=== PATIENT | female | born 1990 | race Caucasian/White ===

== ENCOUNTER → 2016-05-27 | Outpatient (REF) | payer OTHER | LOC: M LAB REF 12:25 | PROVIDERS: ATTEND Physician Assistant | DX: R30.0 Dysuria (principal); M54.5 Low back pain ==

== ENCOUNTER → 2016-06-07 | Outpatient (CLI) | payer OTHER ==
--- NOTE | 2016-06-07 16:44 | REP ---
Lumbar spine five views: Vertebral body heights, interspacing alignment are normal. There is no spondylolysis or spondylolisthesis. The pedicles, facets and sacroiliac articulations are unremarkable. Impression: Negative lumbar spine. Signed by Antonio Dyer MD 06/07/2016 04:35 P
== END ==
LOC: M WUC 11:25
PROVIDERS: ATTEND Physician Assistant
DX: M54.32 Sciatica, left side (principal)

== ENCOUNTER → 2016-07-04 | Outpatient (REF) | payer OTHER | LOC: M LAB REF 19:07 | PROVIDERS: ATTEND Physician Assistant | DX: J02.9 Acute pharyngitis, unspecified (principal) ==

== ENCOUNTER → 2016-09-27 | Outpatient (REF) | payer OTHER | LOC: M LAB REF 16:59 | PROVIDERS: ATTEND Obstetrics & Gynecology | DX: Z12.4 Encounter for screening for malignant neoplasm of cervix (principal); Z11.3 Encounter for screening for infections with a predominantly sexual mode of transmission ==

== ENCOUNTER → 2016-10-14 | Outpatient (REF) | payer OTHER | LOC: M LAB REF 14:37 | PROVIDERS: ATTEND Physician Assistant | DX: J02.9 Acute pharyngitis, unspecified (principal) ==

== ENCOUNTER → 2016-12-17 | Outpatient (CLI) | payer OTHER ==
[~2016-12-17] MED LIST: CITA20TA4 PO; IBUP80TA PO; LEVO25TA5 PO; MEDR15VL IM; RANI1TAB38 PO
[2016-12-17 17:56] LABS: BASO # 0.1 K/mm3 (0.0-0.2); BASO % 0.6 % (0.0-1.0); EOS # 0.1 K/mm3 (0.0-0.50); EOS % 0.7 % (0.0-3.0); LARGE UNSTAINED CELL # 0.1 K/mm3 (0.0-0.4); LARGE UNSTAINED CELL % 1.1 % (0.0-4.0); LYMPH # 2.3 K/mm3 (1.5-6.5); LYMPH % 23.9 % (24.0-44.0); MEAN CORPUSCULAR HEMOGLOBIN 28.2 pg (27.0-33.0); MEAN CORPUSCULAR HGB CONC 32.6 g/dl (32.0-36.5); MEAN CORPUSCULAR VOLUME 86.6 fl (80.0-96.0); MONO # 0.5 K/mm3 (0.0-0.8); MONO % 4.9 % (0.0-5.0); NEUTROPHILS # 6.4 K/mm3 (1.8-7.7); NEUTROPHILS % 68.8 % (36.0-66.0); PLATELET COUNT, AUTOMATED 270 k/mm3 (150-450); RED CELL DISTRIBUTION WIDTH 12.7 % (11.5-14.5); WHITE BLOOD COUNT 9.3 K/mm3 (4.0-10.0)
[2016-12-17 18:11] LABS: ALBUMIN 3.6 GM/DL (3.2-5.2); ALBUMIN/GLOBULIN RATIO 1.06 (1.00-1.93); ALKALINE PHOSPHATASE 119 U/L (45-117); ALT/SGPT 19 U/L (12-78); ANION GAP 9 MEQ/L (8-16); AST/SGOT 10 U/L (15-37); BILIRUBIN,TOTAL 0.5 MG/DL (0.2-1.0); BLOOD UREA NITROGEN 14 MG/DL (7-18); CALCIUM LEVEL 7.8 MG/DL (8.5-10.1); CARBON DIOXIDE LEVEL 24 MEQ/L (21-32); CHLORIDE LEVEL 111 MEQ/L (98-107); CREATININE FOR GFR 0.78 MG/DL (0.55-1.02); GLOMERULAR FILTRATION RATE > 60.0 (>60); GLUCOSE, FASTING 80 MG/DL (70-105); POTASSIUM SERUM 4.4 MEQ/L (3.5-5.1); SODIUM LEVEL 144 MEQ/L (136-145)
== END ==
LOC: M WUC 12:10
PROVIDERS: ATTEND Nurse Practitioner Family
DX: E03.9 Hypothyroidism, unspecified (principal)

== ENCOUNTER → 2017-01-06 | Day surgery (SDC) | payer OTHER ==
[~2017-01-06] VITALS: Ht 167.6 cm; Wt 133.4 kg
[~2017-01-06] MED LIST changes: +BUPIVACAINE/EPIN 0.25% 30 ML VIAL As Ordered ONE; +KETOROLAC 30 MG/ML VIAL (J1885) IV SCH; +LIDOCAINE 2% INJ 100 MG/5 ML SDV (FOR ANES.) As Ordered ONE; +LR 1,000 ML IV SCH; +MIDAZOLAM INJ 2 MG/2 ML VIAL (J2250) As Ordered ONE; +NORCO, ANEXSIA 5/325MG TABLET (HYDROcodone/ACETAMINOPHEN) PO PRN; +ONDANSETRON 4MG/2ML VIAL (J2405) IV PRN; +PERCOCET 5MG/325MG TAB PO PRN; +PROPOFOL 200 MG/20 ML VIAL As Ordered ONE; +ROCURONIUM BROMIDE 50 MG/5 ML VIAL/SYRINGE As Ordered ONE; +ceFAZolin SOD 1 GM in D5W MINI-BAG PLUS 50 ML IV ONE; +dexameTHASONE 4 MG/ML 1ML VIAL (J1100) As Ordered ONE; +fentaNYL 100 MCG/2 ML INJECTION (J3010) As Ordered ONE; +fentaNYL 100 MCG/2 ML INJECTION (J3010) IV PRN
[2017-01-06 12:02] LABS: CONTROL LINE UCG INT CTR LINE PRESENT
[2017-01-06 15:30] VITALS: BP 134/60
--- NOTE | 2017-01-24 08:51 | RO ---
DATE OF PROCEDURE: 01/06/2017 PREOPERATIVE DIAGNOSIS: Symptomatic gallstones. POSTOPERATIVE DIAGNOSIS: Symptomatic gallstones. PROCEDURE: Laparoscopic cholecystectomy. SURGEON: Karlo Gomez MD ANESTHESIA: General endotracheal anesthesia. ESTIMATED BLOOD LOSS: Minimal. FLUIDS: Crystalloid. PROCEDURE SUMMARY: The patient was brought to the operating room and was given general anesthesia. After adequate anesthesia and preoperative antibiotics were given, the patient was prepped and draped in the usual sterile fashion. Next, a periumbilical incision was made with a skin knife. Blunt dissection was carried down to fascia. Fascia was grasped Bryce clamps, elevated, and a Veress needle placed into the abdominal cavity, insufflated to 15 mm pressure. A dilating 10 mm trocar was placed at this time and under direct visualization an epigastric and two lateral trocars were placed. The gallbladder was seen, grasped and retracted superiorly. The gallbladder was cleared of surrounding omentum with hook cautery down to the level of the neck of the gallbladder. This was cleared of surrounding tissue using the hook cautery on the peritoneum laterally and then anteriorly. Once a good plane behind the neck of the gallbladder was created, further dissection anteriorly was created with the use some minimal blunt dissection, as was well as the hook cautery on the loose areolar tissue in the peritoneum. The cystic artery was well visualized at this time and then a window behind the neck of the gallbladder was created on the medial side as well. Then further dissection up to the cystic plate was performed laterally and then once a good window behind the neck of the gallbladder was created, a critical view of safety was obtained. The cystic artery, cystic duct was well visualized. Loose areolar tissue surrounding the cystic duct was cleared and the cystic artery was clipped proximally, distally and transected. This allowed the cystic duct to be mobilized even better at this point and then was clipped proximally, distally and transected. The gallbladder was removed from the gallbladder bed using electrocautery, placed in an EndoCatch bag and brought out through the umbilicus. The right upper quadrant was copiously irrigated until clear. The umbilicus was closed with #0 Vicryl and all incisions were closed with #4-0 Vicryl. Steri-Strips and dry sterile dressing was applied. The patient was awakened from his anesthesia, extubated and brought to the recovery room awake, alert, hemodynamically stable. Sponge and needle counts correct times two.
== END ==
LOC: M SDC 11:02
PROVIDERS: ATTEND Surgery
DX: K80.10 Calculus of gallbladder with chronic cholecystitis without obstruction (principal); K21.9 Gastro-esophageal reflux disease without esophagitis; F41.9 Anxiety disorder, unspecified; F32.9 Major depressive disorder, single episode, unspecified; E03.9 Hypothyroidism, unspecified; Z88.5 Allergy status to narcotic agent; Z88.1 Allergy status to other antibiotic agents; Z91.041 Radiographic dye allergy status; Z79.899 Other long term (current) drug therapy; Z87.891 Personal history of nicotine dependence

== ENCOUNTER 2017-05-22 06:53 | Day surgery (SDC) | payer OTHER ==
[2017-05-22] MEDS ORDERED: ceFAZolin 2 GM/D5W 50 ML IV BAG (J0690 PER 500MG) As Ordered (07:05)
[2017-05-22 07:38] LABS: CONTROL LINE UCG INT CTR LINE PRESENT; HEMATOCRIT 42.9 % (36.0-47.0); HEMOGLOBIN 13.7 g/dl (12.0-16.0); MEAN CORPUSCULAR HEMOGLOBIN 27.3 pg (27.0-33.0); MEAN CORPUSCULAR HGB CONC 31.9 g/dl (32.0-36.5); MEAN CORPUSCULAR VOLUME 85.5 fl (80.0-96.0); PLATELET COUNT, AUTOMATED 356 10^3/uL (150-450); RED BLOOD COUNT 5.02 10^6/uL (4.00-5.40); RED CELL DISTRIBUTION WIDTH 13.1 % (11.5-14.5); URINE PREG TEST NEGATIVE (NEGATIVE); WHITE BLOOD COUNT 13.3 10^3/uL (4.0-10.0)
[2017-05-22] MEDS: LR 1,000 ML IV ×3 (07:40→11:45)
[2017-05-22] MEDS ORDERED: KETOROLAC 60 MG/2 ML VIAL (J1885) As Ordered (08:58)
[2017-05-22] MEDS ORDERED: ONDANSETRON 4MG/2ML VIAL (J2405) As Ordered (08:58)
[2017-05-22] MEDS ORDERED: PROPOFOL 200 MG/20 ML VIAL As Ordered (08:58)
[2017-05-22] MEDS ORDERED: dexameTHASONE 4 MG/ML 1ML VIAL (J1100) As Ordered (08:58)
[2017-05-22] MEDS ORDERED: LIDOCAINE 2% INJ 100 MG/5 ML SDV (FOR ANES.) As Ordered (08:58)
[2017-05-22] MEDS ORDERED: ROCURONIUM BROMIDE 50 MG/5 ML VIAL As Ordered ×2 (08:58→09:12)
[2017-05-22] MEDS ORDERED: fentaNYL 100 MCG/2 ML INJECTION (J3010) As Ordered ×2 (08:59→11:08)
[2017-05-22] MEDS ORDERED: MIDAZOLAM INJ 2 MG/2 ML VIAL (J2250) As Ordered (08:59)
[2017-05-22] MEDS ORDERED: HYDROmorphone HCL 2 MG/ML 1ML VIAL (J1170) As Ordered (08:59)
[2017-05-22] MEDS: BUPIVACAINE HCL 0.25% 10 ML VIAL As Ordered (09:08)
[2017-05-22] MEDS: METHYLENE BLUE 0.5% (5MG/ML) 10 ML AMP (PROVAYBLUE)(Q9968 PER 1MG) As Ordered (10:23)
[2017-05-22] MEDS ORDERED: NEOSTIGMINE 10 MG/10 ML VIAL (J2710) As Ordered (10:36)
[2017-05-22] MEDS: fentaNYL 100 MCG/2 ML INJECTION (J3010) IV ×2 (11:15→11:27)
[2017-05-22] MEDS ORDERED: ONDANSETRON 4MG/2ML VIAL (J2405) IV ×2 (11:45→23:45)
[2017-05-22] MEDS ORDERED: MEPERIDINE 50 MG/ML 1ML VIAL (J2175) IV (11:45)
[2017-05-22] MEDS ORDERED: HYDROmorphone HCL 1 MG/ML SYRINGE (J1170) IV (11:45)
[2017-05-22] MEDS ORDERED: PERCOCET 5MG/325MG TAB PO ×5 (11:45→23:45)
[2017-05-22] MEDS: DOCUSATE SODIUM 100 MG CAP PO ×2 (13:25→20:13)
[2017-05-22] MEDS ORDERED: KETOROLAC 30 MG/ML VIAL (J1885) IV (17:00)
[2017-05-23] MEDS: DOCUSATE SODIUM 100 MG CAP PO (08:45)
[2017-05-23] MEDS: IBUPROFEN 800 MG TAB PO (08:45)
== END 2017-05-23 09:17 | disposition home or self-care (01) ==
LOC: M SDC 06:53 → M MSPAV 13:13
DX: N94.6 Dysmenorrhea, unspecified (principal); R10.2 Pelvic and perineal pain; N72 Inflammatory disease of cervix uteri; F41.9 Anxiety disorder, unspecified; F32.9 Major depressive disorder, single episode, unspecified; E03.9 Hypothyroidism, unspecified; K21.9 Gastro-esophageal reflux disease without esophagitis; Z88.5 Allergy status to narcotic agent; Z88.8 Allergy status to other drugs, medicaments and biological substances; Z91.041 Radiographic dye allergy status; Z72.0 Tobacco use; Z79.3 Long term (current) use of hormonal contraceptives
CPT/HCPCS: 58570

== ENCOUNTER → 2017-08-14 | Outpatient (REF) | payer OTHER | LOC: M LAB REF 08:55 | DX: J02.9 Acute pharyngitis, unspecified (principal) | CPT/HCPCS: 87081 ==

== ENCOUNTER 2017-10-12 11:24 | Emergency (ER) | payer OTHER ==
[2017-10-12] MEDS: dexameTHASONE 4 MG/ML 1ML VIAL (J1100) PO (12:28)
== END 2017-10-12 12:41 | disposition home or self-care (01) ==
LOC: M ED 11:24
DX: J02.9 Acute pharyngitis, unspecified (principal); Z88.5 Allergy status to narcotic agent; Z88.8 Allergy status to other drugs, medicaments and biological substances; Z91.018 Allergy to other foods; Z91.041 Radiographic dye allergy status; F17.210 Nicotine dependence, cigarettes, uncomplicated
CPT/HCPCS: J1100

== ENCOUNTER 2017-11-17 08:08 | Emergency (ER) | payer OTHER ==
[2017-11-17 08:44] LABS: AMORPHOUS SEDIMENT RFX SMALL (NEGATIVE); KETONE, URINE AUTO RFX NEGATIVE (NEGATIVE); LEUKOCYTE ESTERASE UR AUTO RFX NEGATIVE (NEGATIVE); MUCUS, URINE RFX MODERATE (NEGATIVE); NITRITE, URINE AUTO RFX NEGATIVE (NEGATIVE); RBC, URINE AUTO RFX 0 /HPF (0-3); SPECIFIC GRAVITY UR AUTO RFX 1.026 (1.002-1.035); SQUAM EPITHELIAL CELL UR AURFX 11 /HPF (0-6); WBC, URINE AUTO RFX 2 /HPF (0-3)
== END 2017-11-17 09:09 | disposition home or self-care (01) ==
LOC: M ED 08:08
DX: N30.90 Cystitis, unspecified without hematuria (principal); K21.9 Gastro-esophageal reflux disease without esophagitis; E03.9 Hypothyroidism, unspecified; N80.9 Endometriosis, unspecified; Z87.440 Personal history of urinary (tract) infections; Z88.5 Allergy status to narcotic agent; Z88.8 Allergy status to other drugs, medicaments and biological substances; Z91.041 Radiographic dye allergy status; Z91.048 Other nonmedicinal substance allergy status; F17.210 Nicotine dependence, cigarettes, uncomplicated
CPT/HCPCS: 81001

== ENCOUNTER → 2017-11-17 | Outpatient (REF) | payer OTHER ==
[2017-11-17 16:38] LABS: CHLAMYDIA DNA AMPLIFICATION NEGATIVE (NEGATIVE); GC DNA AMPLIFICATION NEGATIVE (NEGATIVE)
== END ==
LOC: M LAB REF 14:08
DX: N39.0 Urinary tract infection, site not specified (principal)
CPT/HCPCS: 87086

== ENCOUNTER 2018-02-07 19:13 | Emergency (ER) | payer OTHER ==
[2018-02-07 20:50] LABS: BASO # 0.1 10^3/uL (0.0-0.2); BASO % 0.4 % (0.0-1.0); EOS # 0.1 10^3/uL (0.0-0.50); EOS % 0.8 % (0.0-3.0); HEMATOCRIT 46.8 % (36.0-47.0); HEMOGLOBIN 14.7 g/dl (12.0-15.5); IMMATURE GRANULOCYTE % 0.6 % (0-3.0); LYMPH # 3.5 10^3/uL (1.5-6.5); LYMPH % 22.4 % (24.0-44.0); MEAN CORPUSCULAR HEMOGLOBIN 28.5 pg (27.0-33.0); MEAN CORPUSCULAR HGB CONC 31.4 g/dl (32.0-36.5); MEAN CORPUSCULAR VOLUME 90.7 fl (80.0-96.0); MONO # 0.9 10^3/uL (0.0-0.8); MONO % 5.5 % (0.0-5.0); NEUTROPHILS # 11.1 10^3/uL (1.8-7.7); NEUTROPHILS % 70.3 % (36.0-66.0); PLATELET COUNT, AUTOMATED 338 10^3/uL (150-450); RED BLOOD COUNT 5.16 10^6/uL (4.00-5.40); RED CELL DISTRIBUTION WIDTH 12.5 % (11.5-14.5); WHITE BLOOD COUNT 15.8 10^3/uL (4.0-10.0)
[2018-02-07 20:54] LABS: KETONE, URINE AUTO RFX TRACE mg/dL (NEGATIVE); LEUKOCYTE ESTERASE UR AUTO RFX NEGATIVE (NEGATIVE); MUCUS, URINE RFX SMALL (NEGATIVE); NITRITE, URINE AUTO RFX NEGATIVE (NEGATIVE); RBC, URINE AUTO RFX 3 /HPF (0-3); SQUAM EPITHELIAL CELL UR AURFX 2 /HPF (0-6); WBC, URINE AUTO RFX 1 /HPF (0-3)
[2018-02-07] MEDS: NS 1,000 ML IV (21:25)
[2018-02-07] MEDS: KETOROLAC 30 MG/ML VIAL (J1885) IV (21:25)
[2018-02-07] MEDS: ONDANSETRON 4MG/2ML VIAL (J2405) IV (21:25)
[2018-02-07 21:29] LABS: ANION GAP 5 MEQ/L (8-16); BLOOD UREA NITROGEN 16 MG/DL (7-18); CALCIUM LEVEL 8.6 MG/DL (8.5-10.1); CARBON DIOXIDE LEVEL 28 MEQ/L (21-32); CHLORIDE LEVEL 107 MEQ/L (98-107); CREATININE FOR GFR 0.84 MG/DL (0.55-1.30); GLOMERULAR FILTRATION RATE > 60.0 (>60); GLUCOSE, FASTING 85 MG/DL (70-100); POTASSIUM SERUM 3.9 MEQ/L (3.5-5.1); SODIUM LEVEL 140 MEQ/L (136-145)
[2018-02-07] MEDS: cefTRIAXone SOD 1 GM in D5W MINI-BAG PLUS 50 ML IV (23:30)
[2018-02-07] MEDS: METOCLOPRAMIDE INJ 10MG/2ML VIAL (J2765) IV (23:48)
== END 2018-02-08 01:17 | disposition home or self-care (01) ==
LOC: M ED 02-08 01:17
DX: N83.201 Unspecified ovarian cyst, right side (principal); N83.202 Unspecified ovarian cyst, left side; N39.0 Urinary tract infection, site not specified; K21.9 Gastro-esophageal reflux disease without esophagitis; N80.9 Endometriosis, unspecified; Z91.018 Allergy to other foods; E03.9 Hypothyroidism, unspecified; Z88.5 Allergy status to narcotic agent; Z88.8 Allergy status to other drugs, medicaments and biological substances; Z91.040 Latex allergy status
CPT/HCPCS: J2405

== ENCOUNTER 2018-02-10 19:11 | Emergency (ER) | payer OTHER ==
[2018-02-10 19:58] LABS: KETONE, URINE AUTO RFX NEGATIVE (NEGATIVE); LEUKOCYTE ESTERASE UR AUTO RFX 2+ (NEGATIVE); MUCUS, URINE RFX SMALL (NEGATIVE); NITRITE, URINE AUTO RFX NEGATIVE (NEGATIVE); RBC, URINE AUTO RFX 7 /HPF (0-3); SPECIFIC GRAVITY UR AUTO RFX 1.016 (1.002-1.035); SQUAM EPITHELIAL CELL UR AURFX 3 /HPF (0-6); WBC, URINE AUTO RFX 2 /HPF (0-3); YEAST LIKE CELL URINE AUTO RFX SMALL
[2018-02-10] MEDS: DOCUSATE SODIUM 100 MG CAP PO (20:37)
[2018-02-10] MEDS: PERCOCET 5MG/325MG TAB PO ×2 (20:41→22:51)
[2018-02-10 21:54] LABS: CHLAMYDIA DNA AMPLIFICATION NEGATIVE (NEGATIVE); GC DNA AMPLIFICATION NEGATIVE (NEGATIVE)
== END 2018-02-10 22:54 | disposition home or self-care (01) ==
LOC: M ED 19:11
DX: N83.209 Unspecified ovarian cyst, unspecified side (principal)
CPT/HCPCS: 81001

== ENCOUNTER 2018-06-15 20:59 | Emergency (ER) | payer OTHER ==
[~2018-06-15] VITALS: Ht 167.6 cm; Wt 129.1 kg
[~2018-06-15 20:59] MED LIST changes: +BACT800T5 PO; -BUPIVACAINE/EPIN 0.25% 30 ML VIAL As Ordered ONE; +CIPR-249 PO; +COLA100C5 PO; +IBUP-1022 PO; -KETOROLAC 30 MG/ML VIAL (J1885) IV SCH; -LIDOCAINE 2% INJ 100 MG/5 ML SDV (FOR ANES.) As Ordered ONE; -LR 1,000 ML IV SCH; +MAGICMW MT; +MEDR150I10; +MEDR150I10 IM; -MEDR15VL IM; -MIDAZOLAM INJ 2 MG/2 ML VIAL (J2250) As Ordered ONE; +NASA1SPR; -NORCO, ANEXSIA 5/325MG TABLET (HYDROcodone/ACETAMINOPHEN) PO PRN; -ONDANSETRON 4MG/2ML VIAL (J2405) IV PRN; +PERC5TAB12 PO; -PERCOCET 5MG/325MG TAB PO PRN; -PROPOFOL 200 MG/20 ML VIAL As Ordered ONE; +RANI150T PO; -ROCURONIUM BROMIDE 50 MG/5 ML VIAL/SYRINGE As Ordered ONE; +SUDATAB18 PO; +ZOFR4TAB14 PO; -ceFAZolin SOD 1 GM in D5W MINI-BAG PLUS 50 ML IV ONE; -dexameTHASONE 4 MG/ML 1ML VIAL (J1100) As Ordered ONE; -fentaNYL 100 MCG/2 ML INJECTION (J3010) As Ordered ONE; -fentaNYL 100 MCG/2 ML INJECTION (J3010) IV PRN
[2018-06-15] MEDS ORDERED: NS 1,000 ML IV ONE (21:15)
[2018-06-15 21:35] LABS: HEMATOCRIT 45.5 % (36.0-47.0); HEMOGLOBIN 14.5 g/dl (12.0-15.5); MEAN CORPUSCULAR HEMOGLOBIN 28.6 pg (27.0-33.0); MEAN CORPUSCULAR HGB CONC 31.9 g/dl (32.0-36.5); MEAN CORPUSCULAR VOLUME 89.7 fl (80.0-96.0); PLATELET COUNT, AUTOMATED 341 10^3/uL (150-450); RED BLOOD COUNT 5.07 10^6/uL (4.00-5.40); WHITE BLOOD COUNT 14.7 10^3/uL (4.0-10.0)
[2018-06-15 21:54] LABS: ALBUMIN 3.6 GM/DL (3.2-5.2); ALT/SGPT 24 U/L (12-78); ATYPICAL LYMPH 6 % (0-5); BILIRUBIN,TOTAL 0.2 MG/DL (0.2-1.0); BLOOD UREA NITROGEN 13 MG/DL (7-18); CARBON DIOXIDE LEVEL 28 MEQ/L (21-32); CHLORIDE LEVEL 105 MEQ/L (98-107); CREATININE FOR GFR 0.72 MG/DL (0.55-1.30); GLOMERULAR FILTRATION RATE > 60.0 (>60); GLUCOSE, FASTING 90 MG/DL (70-100); LIPASE 180 U/L (73-393); LYMPHOCYTES 29 % (16-52); MONOCYTES 2 % (0-8); NEUTROPHILS 63 % (35-75); PLATELET ESTIMATE NORMAL (NORMAL); POTASSIUM SERUM 4.2 MEQ/L (3.5-5.1); SODIUM LEVEL 140 MEQ/L (136-145); TOTAL PROTEIN 6.8 GM/DL (6.4-8.2); TOXIC VACUOLATION 1+
--- NOTE | 2018-06-15 22:52 | REPVR ---
EXAM: US Pelvis Complete, Transabdominal EXAM DATE/TIME: 06/15/2018 10:16 PM CLINICAL HISTORY: 27 years old, female; Pain; Pelvic pain; Prior surgery; Surgery date: 6+ months; Surgery type: Partial hysterectomy; Additional info: R pelvic pain, HX cysts and fam HX ovarian CA TECHNIQUE: Real-time transabdominal pelvic ultrasound with image documentation. Complete exam. COMPARISON: US PELVIC NON-OB COMPLETE 02/08/2018 12:07 AM FINDINGS: Uterus/cervix: The patient has had previous removal of the uterus. Right adnexa: The right ovary measures 4.3 CM by 4.2 CM. There is a 4 CM cystic structure within the right ovary. There is vascular flow of the margin of this consistent with vascular flow of the ovarian tissue surrounding this very large dominant cyst. Followup studies would be important to see if this dominant cystic structure resolves to exclude any possibility of cystadenoma or cystadenocarcinoma. Left adnexa: The left ovary measures 4 CM in length by 3 CM in thickness. There is vascular flow the left ovary with no evidence of torsion. There is an irregular cyst left ovary and may be a collapsing cyst measuring 2 CM by 1 CM. Free fluid: There is a moderate amount of fluid within the pelvis. Within this fluid there are low-level echoes and this may represent blood. Bladder: Normal appearing urinary bladder. IMPRESSION: 1. 4 cm large cyst of the right ovary. To exclude any possibility of cystadenoma or cystadenocarcinoma recommend sequential followup studies to see if this resolves. 2. Collapsing cyst of the left ovary. 3. Moderate amount of free fluid in the pelvis with low-level echoes possibly blood and blood products. Correlation with CT should be considered. Electronically signed by: Thierry Fernandez On 06/15/2018 22:52:03 PM
[2018-06-15 23:22] VITALS: BP 131/78
--- NOTE | 2018-06-25 18:49 | ED PDOC ---
Post-Departure Follow-Up juana barker faxed formal report of pelvic us for fu Traci Chandra MD Jun 25, 2018 18:49
== END 2018-06-15 23:46 | disposition home or self-care (01) ==
LOC: M ED 20:59
DX: N83.201 Unspecified ovarian cyst, right side (principal); N83.292 Other ovarian cyst, left side

== ENCOUNTER 2018-08-15 17:55 | Emergency (ER) | payer OTHER ==
[~2018-08-15] VITALS: Ht 165.1 cm; Wt 135.4 kg
[~2018-08-15 17:55] MED LIST changes: -CITA20TA4 PO; +CITA20TA6 PO
[2018-08-15] MEDS ORDERED: KETOROLAC 30 MG/ML VIAL (J1885) IV ONE (18:45)
[2018-08-15 18:47] LABS: BASO # 0.1 10^3/uL (0.0-0.2); BASO % 0.5 % (0.0-1.0); EOS # 0.1 10^3/uL (0.0-0.50); EOS % 0.7 % (0.0-3.0); HEMATOCRIT 44.7 % (36.0-47.0); HEMOGLOBIN 14.4 g/dl (12.0-15.5); LYMPH # 3.4 10^3/uL (1.5-6.5); LYMPH % 28.5 % (24.0-44.0); MEAN CORPUSCULAR HEMOGLOBIN 29.1 pg (27.0-33.0); MEAN CORPUSCULAR HGB CONC 32.2 g/dl (32.0-36.5); MEAN CORPUSCULAR VOLUME 90.5 fl (80.0-96.0); MONO # 0.7 10^3/uL (0.0-0.8); MONO % 6.3 % (0.0-5.0); NEUTROPHILS # 7.5 10^3/uL (1.8-7.7); NEUTROPHILS % 63.6 % (36.0-66.0); PLATELET COUNT, AUTOMATED 296 10^3/uL (150-450); RED BLOOD COUNT 4.94 10^6/uL (4.00-5.40); WHITE BLOOD COUNT 11.8 10^3/uL (4.0-10.0)
[2018-08-15 19:12] LABS: ALBUMIN 3.7 GM/DL (3.2-5.2); ALT/SGPT 25 U/L (12-78); AMYLASE 55 U/L (25-115); BILIRUBIN,DIRECT < 0.1 MG/DL (0.0-0.2); BILIRUBIN,TOTAL 0.3 MG/DL (0.2-1.0); BLOOD UREA NITROGEN 16 MG/DL (7-18); CALCIUM LEVEL 8.7 MG/DL (8.5-10.1); CARBON DIOXIDE LEVEL 27 MEQ/L (21-32); CHLORIDE LEVEL 107 MEQ/L (98-107); CREATININE FOR GFR 0.84 MG/DL (0.55-1.30); GLOMERULAR FILTRATION RATE > 60.0 (>60); GLUCOSE, FASTING 88 MG/DL (70-100); HCG, SERUM QUANTITATIVE < 1.0 MIU/ML; LIPASE 121 U/L (73-393); POTASSIUM SERUM 3.8 MEQ/L (3.5-5.1); SODIUM LEVEL 140 MEQ/L (136-145); TOTAL PROTEIN 6.7 GM/DL (6.4-8.2)
--- NOTE | 2018-08-15 20:23 | REPVR ---
EXAM: US Pelvis Complete, Transabdominal EXAM DATE/TIME: 08/15/2018 7:44 PM CLINICAL HISTORY: 27 years old, female; Pain; Pelvic pain; Prior surgery; Additional info: Abd pain HX ovarian cyst TECHNIQUE: Imaging protocol: Real-time transabdominal pelvic ultrasound with image documentation. Complete exam. COMPARISON: US PELVIC NON-OB COMPLETE 06/15/2018 10:01 PM FINDINGS: Uterus/cervix: Status post hysterectomy. Right adnexa: Right ovary not visualized. Left adnexa: Left ovary measures 4.3 x 3.7 x 5.9 cm. RI 0.49. Complex cyst in the left ovary measures 3.5 x 3.4 weight 4.8 cm likely representing a hemorrhagic cyst. Impression Free fluid: Moderate free fluid in the cul-de-sac. Bladder: Normal. IMPRESSION: Findings compatible with hemorrhagic cyst the left ovary. Status post hysterectomy. Nonvisualized right ovary. Electronically signed by: Domo Lazaro On 08/15/2018 20:23:06 PM
[2018-08-15 20:31] LABS: CHLAMYDIA DNA AMPLIFICATION NEGATIVE (NEGATIVE); GC DNA AMPLIFICATION NEGATIVE (NEGATIVE)
[2018-08-15] MEDS ORDERED: ONDA4TAB6 PO (20:57)
[2018-08-15] MEDS ORDERED: KETO10TAB PO (20:57)
[2018-08-15 21:07] VITALS: BP 116/67
== END 2018-08-15 21:17 | disposition home or self-care (01) ==
LOC: M ED 17:55
DX: N83.292 Other ovarian cyst, left side (principal); R11.0 Nausea; N80.9 Endometriosis, unspecified; E03.9 Hypothyroidism, unspecified; Z87.440 Personal history of urinary (tract) infections; Z72.0 Tobacco use; Z80.41 Family history of malignant neoplasm of ovary; Z90.710 Acquired absence of both cervix and uterus; Z91.041 Radiographic dye allergy status; Z88.8 Allergy status to other drugs, medicaments and biological substances; Z88.5 Allergy status to narcotic agent; Z91.018 Allergy to other foods
CPT/HCPCS: 76856; 80048; 80076; 81001; 82150; 83605; 83690; 84702; 85025; 87210; 87491; 87591; 96374; 99284; J1885

== ENCOUNTER → 2018-12-10 | Outpatient (CLI) | payer OTHER ==
[~2018-12-10] MED LIST changes: +KETO10TAB PO; +ONDA4TAB6 PO
--- NOTE | 2018-12-10 15:03 | REP ---
REASON: Followup left ovarian cyst. Prior examination 08/15/2018 showed a complex 4.8 cm sized left ovarian cyst. Transvesical and transvaginal imaging was obtained. Once again, there is a complex mixed echo structure in the left adnexa rising from the left ovary today measuring 4.4 x 2.9 x 4.2 cm essentially unchanged from the prior exam. The left ovary measures 6.0 x 4.0 x 5.3 cm with an RI of 0.44. The right ovary measures 1.5 x 0.9 x 1.7 cm according to the technologist was seen on the limited view secondary to bowel gas pattern. The right ovarian RI is 0.37. The patient is status post hysterectomy. There is no free fluid in the pelvis. The urinary bladder measures 5.0 x 6.0 x 6.0 cm. IMPRESSION: Persistent complex left ovarian cystic appearing structure. It is unlikely that this represents a persistent hemorrhagic cyst from the prior exam unless the prior cyst resolved and this represents a new hemorrhagic cyst. Certainly, I cannot rule out the possibility of neoplastic change. I cannot rule out the possibility of an endometrioma. Clinical correlation is necessary. Consider pelvic MRI after intravenous gadolinium. Neoplastic change is much less likely due to the patient's young age. Electronically Signed by Moses Benites DO 12/10/2018 04:48 P
== END ==
LOC: M RAD 11:26
PROVIDERS: ATTEND Specialist
DX: N83.202 Unspecified ovarian cyst, left side (principal)

== ENCOUNTER 2019-01-20 21:01 | Emergency (ER) | payer OTHER, SELFPAY ==
[~2019-01-20] VITALS: Ht 165.1 cm; Wt 138.4 kg
[2019-01-20 21:01] VITALS: BP 132/75
[2019-01-20] MEDS ORDERED: BACT800T5 PO (21:49)
[2019-01-20] MEDS ORDERED: PYRI1TAB5 PO (21:50)
[2019-01-20] MEDS ORDERED: BACTRIM 160MG/800MG DS TAB PO ONE (22:00)
== END 2019-01-20 22:14 | disposition home or self-care (01) ==
LOC: M ED 21:01
DX: N30.00 Acute cystitis without hematuria (principal); Z88.1 Allergy status to other antibiotic agents; Z91.018 Allergy to other foods; Z91.041 Radiographic dye allergy status

== ENCOUNTER 2019-05-05 07:12 | Emergency (ER) | payer OTHER ==
[~2019-05-05] VITALS: Ht 165.1 cm; Wt 138.2 kg
[~2019-05-05 07:12] MED LIST changes: +PYRI1TAB5 PO
[2019-05-05 08:17] LABS: BASO # 0.1 10^3/uL (0.0-0.2); BASO % 0.7 % (0.0-1.0); EOS # 0.1 10^3/uL (0.0-0.5); EOS % 1.2 % (0.0-3.0); HEMOGLOBIN 14.3 g/dl (12.0-15.5); LYMPH # 2.9 10^3/uL (1.5-5.0); MEAN CORPUSCULAR HEMOGLOBIN 28.7 pg (27.0-33.0); MEAN CORPUSCULAR HGB CONC 31.8 g/dl (32.0-36.5); MEAN CORPUSCULAR VOLUME 90.2 fl (80.0-96.0); MONO # 0.7 10^3/uL (0.0-0.8); MONO % 7.2 % (0.0-5.0); NEUTROPHILS # 6.1 10^3/uL (1.5-8.5); NEUTROPHILS % 61.3 % (36.0-66.0); PLATELET COUNT, AUTOMATED 304 10^3/uL (150-450); RED BLOOD COUNT 4.99 10^6/uL (4.00-5.40)
[2019-05-05 08:35] LABS: ALBUMIN 3.1 GM/DL (3.2-5.2); ALT/SGPT 24 U/L (12-78); BILIRUBIN,DIRECT 0.1 MG/DL (0.0-0.2); BILIRUBIN,TOTAL 0.3 MG/DL (0.2-1.0); BLOOD UREA NITROGEN 15 MG/DL (7-18); CALCIUM LEVEL 8.5 MG/DL (8.5-10.1); CARBON DIOXIDE LEVEL 23 MEQ/L (21-32); CHLORIDE LEVEL 109 MEQ/L (98-107); CREATININE FOR GFR 0.69 MG/DL (0.55-1.30); GLOMERULAR FILTRATION RATE > 60.0 (>60); GLUCOSE, FASTING 104 MG/DL (70-100); LIPASE 133 U/L (73-393); SODIUM LEVEL 139 MEQ/L (136-145)
--- NOTE | 2019-05-05 09:23 | REP ---
PELVIC SONOGRAPHY: HISTORY: Right pelvic pain. History of ovarian cysts. Comparison is made with CT study February 07, 2018 and pelvic sonography December 10, 2018. FINDINGS: Transabdominal and transvaginal scanning are performed. The uterus is surgically absent. Visualized bladder kemp are smooth. No free fluid is seen in the cul-de-sac. Right ovarian dimensions are 3.8 x 4.3 x 3.7 cm. There is a 2.4 x 2.0 x 1.9 cm follicle cyst in the right ovary and a 2.3 x 1.8 x 2.2 cm hypoechoic cyst is seen. The left ovary measures 3.7 x 2.6 x 1.4 cm. No significant cyst is seen. Doppler flow is present in both ovaries. Resistive indices are 0.54 and 0.76 on the right and left respectively. There are small tubular structures adjacent in each ovary with slightly thickened kemp, complex cyst versus hydrosalpinx versus endometriosis. These measure 1.8 cm in greatest diameter on the right and 1.4 cm on the left. IMPRESSION: Small complex paraovarian cysts one of each side, question endometriosis related cyst versus hydrosalpinx. Normal follicle cysts seen within the ovaries. Post hysterectomy. Improvement is noted since the most recent sonography December 10, 2018. Electronically Signed by Sherwin Jimenez MD 05/05/2019 10:37 A
[2019-05-05] MEDS ORDERED: IBUPROFEN 800 MG TAB PO ONE (10:00)
[2019-05-05] MEDS ORDERED: IBUP80TA PO (11:22)
[2019-05-05 11:27] VITALS: BP 119/62
[2019-05-05 12:26] LABS: CHLAMYDIA DNA AMPLIFICATION NEGATIVE (NEGATIVE); GC DNA AMPLIFICATION NEGATIVE (NEGATIVE)
--- NOTE | 2019-05-05 17:07 | ED PDOC ---
Post-Departure Follow-Up dr juárez and juana barker faxed formal report of pelvic us for fu Traci Chandra MD May 05, 2019 17:07
== END 2019-05-05 11:29 | disposition home or self-care (01) ==
LOC: M ED 07:12
DX: N83.202 Unspecified ovarian cyst, left side (principal); N80.9 Endometriosis, unspecified; Z88.5 Allergy status to narcotic agent; Z88.8 Allergy status to other drugs, medicaments and biological substances; Z91.018 Allergy to other foods; Z91.041 Radiographic dye allergy status; F17.210 Nicotine dependence, cigarettes, uncomplicated

== ENCOUNTER 2019-06-26 09:34 | Day surgery (SDC) | payer OTHER ==
[~2019-06-26] VITALS: Ht 165.1 cm; Wt 136.7 kg
[~2019-06-26 09:34] MED LIST changes: +LIDOCAINE 1% MDV 20ML VIAL SQ PRN; +LR 1,000 ML IV ONE
[2019-06-26 10:09] LABS: HEMATOCRIT 46.4 % (36.0-47.0); HEMOGLOBIN 14.7 g/dl (12.0-15.5); MEAN CORPUSCULAR HEMOGLOBIN 28.5 pg (27.0-33.0); MEAN CORPUSCULAR HGB CONC 31.7 g/dl (32.0-36.5); MEAN CORPUSCULAR VOLUME 89.9 fl (80.0-96.0); PLATELET COUNT, AUTOMATED 326 10^3/uL (150-450); RED BLOOD COUNT 5.16 10^6/uL (4.00-5.40); WHITE BLOOD COUNT 13.5 10^3/uL (4.0-10.0)
[2019-06-26] MEDS ORDERED: ONDANSETRON 4MG/2ML VIAL (J2405) As Ordered ONE (10:12)
[2019-06-26] MEDS ORDERED: dexameTHASONE 4 MG/ML 1ML VIAL (J1100) As Ordered ONE (10:12)
[2019-06-26] MEDS ORDERED: ROCURONIUM BROMIDE 50 MG/5 ML VIAL As Ordered ONE ×2 (10:12→13:39)
[2019-06-26] MEDS ORDERED: propofoL 200 MG/20 ML VIAL As Ordered ONE ×2 (10:12→12:34)
[2019-06-26] MEDS ORDERED: LIDOCAINE 2% INJ 100 MG/5 ML SDV (FOR ANES.) As Ordered ONE (10:12)
[2019-06-26] MEDS ORDERED: MIDAZOLAM INJ 2 MG/2 ML VIAL (J2250) As Ordered ONE (10:13)
[2019-06-26] MEDS ORDERED: fentaNYL 100 MCG/2 ML INJECTION (J3010) As Ordered ONE (10:21)
[2019-06-26] MEDS ORDERED: SEVOFLURANE INHAL SOLN 250 ML BTL As Ordered ONE (10:35)
[2019-06-26] MEDS ORDERED: DESFLURANE 240 ML INHALANT As Ordered ONE (10:35)
[2019-06-26] MEDS ORDERED: BUPIVACAINE HCL 0.25% 10 ML VIAL As Ordered ONE (12:40)
[2019-06-26] MEDS ORDERED: HYDROmorphone HCL 2 MG/ML 1ML VIAL (J1170) As Ordered ONE (13:09)
[2019-06-26] MEDS ORDERED: KETOROLAC 60 MG/2 ML VIAL (J1885) As Ordered ONE (13:19)
[2019-06-26] MEDS ORDERED: SUGAMMADEX SODIUM 500 MG/5 ML VIAL (BRIDION) As Ordered ONE (13:25)
[2019-06-26] MEDS ORDERED: ACETAMINOPHEN 1000MG 100ML IV BTL (OFIRMEV) (J0131 PER 10MG) As Ordered ONE (13:53)
[2019-06-26] MEDS ORDERED: PERCOCET 5MG/325MG TAB PO PRN (14:30)
[2019-06-26] MEDS ORDERED: LR 1,000 ML IV SCH (14:30)
[2019-06-26] MEDS ORDERED: fentaNYL 100 MCG/2 ML INJECTION (J3010) IV PRN (14:30)
[2019-06-26] MEDS ORDERED: ONDANSETRON 4MG/2ML VIAL (J2405) IV PRN (14:30)
[2019-06-26] MEDS ORDERED: oxyCODONE 5MG TAB PO PRN (14:30)
[2019-06-26 15:00] VITALS: BP 105/58
[2019-06-26] MEDS ORDERED: OXYC1TAB23 PO (16:34)
[2019-06-26] MEDS ORDERED: ESTR1TAB3 PO (16:35)
[2019-06-26] MEDS ORDERED: IBUP-1022 PO (16:35)
--- NOTE | 2019-06-27 10:13 | RO ---
DATE OF OPERATION: 06/26/2019 PREOPERATIVE DIAGNOSIS: Bilateral recurrent ovarian cysts. POSTOPERATIVE DIAGNOSIS: Bilateral recurrent ovarian cysts. PROCEDURE: Laparoscopic bilateral salpingo-oophorectomy. 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 ESTIMATED BLOOD LOSS: 25 mL. FINDINGS: Bilateral small ovarian cysts, surgically absent uterus, adhesions of ovaries to the lateral pelvic sidewalls. Supraumbilical adhesions of small bowel to the anterior abdominal wall in the midline. Adhesions were about 3-4 cm superior to the umbilicus. DESCRIPTION OF PROCEDURE: Operative summary: The patient was taken to the operating room where general endotracheal anesthesia was induced. She was prepped and draped in sterile fashion in the supine position. Periumbilical incision was made with a scalpel, and a Veress needle was placed through this incision while tenting up on the skin of the abdomen. Intra-abdominal location of the Veress needle was assessed with the use of a saline-filled syringe. A pneumoperitoneum was created. The Veress needle was removed. An 11 mm trocar using [employer]ort was inserted through this incision. Two 5 mm suprapubic ports were placed under direct visualization. A 5 mm scope was used through the suprapubic port to observe adhesions of the bowel to the midline. Adhesions of small bowel anterior abdominal wall to the midline were superior to the entry site with the periumbilical port. Patient was placed in Trendelenburg position. Adhesions of the ovary to the anterior pelvic sidewall of the right were dissected, combination of sharp and blunt dissection. The infundibulopelvic (IP) ligament was isolated and found to be away from the ureters. IP ligament was coagulated and incised. Broad ligament attachments to the ovary and fallopian tube on the right were coagulated and incised. Left ovary was also adhered to the pelvic sidewall. This was elevated with the grasping instruments. Adhesions were taken down sharply. The IP ligament was coagulated and incised using LigaSure. Remaining peritoneal adhesions were taken down sharply. Both specimens were placed in Endo Catch bag and removed through the umbilical port. Pneumoperitoneum was released. All instruments removed. The fascia of the umbilical port was closed with two interrupted sutures of #0 Vicryl. Skin was closed with #4-0 Monocryl subcuticular sutures. Sponge, instrument, and needle counts were correct. The patient was extubated and went to recovery room in stable condition.
== END 2019-06-26 16:42 | disposition home or self-care (01) ==
LOC: M SDC 09:34
PROVIDERS: ATTEND Specialist
DX: N83.291 Other ovarian cyst, right side (principal); N83.292 Other ovarian cyst, left side; N73.6 Female pelvic peritoneal adhesions (postinfective); E03.9 Hypothyroidism, unspecified; K21.9 Gastro-esophageal reflux disease without esophagitis; Z88.5 Allergy status to narcotic agent; Z88.8 Allergy status to other drugs, medicaments and biological substances; Z91.041 Radiographic dye allergy status; Z91.018 Allergy to other foods
CPT/HCPCS: 36415; 58661; 85027; 88305; J0131; J1100; J1170; J1885; J2250; J2405; J3010

== ENCOUNTER → 2020-06-09 | Outpatient (CLI) | payer OTHER ==
[~2020-06-09] MED LIST changes: +ESTR1TAB3 PO; -LIDOCAINE 1% MDV 20ML VIAL SQ PRN; -LR 1,000 ML IV ONE; +OXYC1TAB23 PO
--- NOTE | 2020-06-09 14:16 | REP ---
INDICATION: LUQ PAIN/ LLQ PAIN COMPARISON: Comparison CT study abdomen pelvis 07 February 2018.. TECHNIQUE: Helical scanning is acquired in 4 mm axial images were reformatted. Coronal and sagittal MPR images were generated and reviewed. 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 The lung bases are clear on axial CT images. There is mild diffuse fatty infiltration of the liver. Liver is not felt to be enlarged. The spleen is normal in size homogeneous in texture. There is a tiny accessory splenule at the anterior edge of the spleen. No significant abnormality is noted in the pancreas. Normal adrenal glands are seen. The gallbladder is surgically absent. There is no evidence of hydronephrosis or intrarenal calculus on either side. Kidneys appear morphologically intact. No retroperitoneal mass or adenopathy is observed. No abdominal wall defect is seen. Small and large bowel loops are unremarkable in the abdomen and pelvis. No obstructive lesion is seen. The appendix is surgically absent as is the uterus. No adnexal pathology is appreciated. Urinary bladder is unremarkable although largely empty. Bone window settings show no bony destructive lesion. IMPRESSION: Fatty infiltration of the liver. Post cholecystectomy, appendectomy, and hysterectomy. Otherwise negative. No acute abdominal or pelvic abnormality. <Electronically signed by Aiden Jimenez > 06/09/20 [id number]
== END ==
LOC: M RAD 13:24
PROVIDERS: ATTEND Physician Assistant
DX: R10.32 Left lower quadrant pain (principal)

== ENCOUNTER → 2020-06-09 | Outpatient (REF) | payer OTHER | LOC: M LAB REF 15:30 | PROVIDERS: ATTEND Physician Assistant | DX: R10.12 Left upper quadrant pain (principal) ==

== ENCOUNTER → 2020-06-18 | Outpatient (REF) | payer OTHER ==
[2020-06-18 17:04] LABS: APPEARANCE, URINE TURBID (CLEAR); BACTERIA, URINE AUTO 1+ (NEGATIVE); BILIRUBIN, URINE AUTO NEGATIVE (NEGATIVE); BLOOD, URINE BLOOD NEGATIVE (NEGATIVE); CALCIUM OXALATE CRYSTALS LARGE; COLOR, URINE YELLOW (YELLOW); GLUCOSE, URINE (UA) AUTO NEGATIVE (NEGATIVE); KETONE, URINE AUTO NEGATIVE (NEGATIVE); LEUKOCYTE ESTERASE, URINE AUTO NEGATIVE (NEGATIVE); MUCUS, URINE MODERATE (NEGATIVE); NITRITE, URINE AUTO NEGATIVE (NEGATIVE); PROTEIN, URINE AUTO NEGATIVE (NEGATIVE); RBC, URINE AUTO 2 /HPF (0-3); SPECIFIC GRAVITY URINE AUTO 1.029 (1.002-1.035); SQUAMOUS EPITHELIAL CELL UR AU 3 /HPF (0-6); UROBILINOGEN, URINE AUTO 0.2 mg/dL (0.0-2.0); WBC, URINE AUTO 0 /HPF (0-3)
== END ==
LOC: M LAB REF 16:29
PROVIDERS: ATTEND Nurse Practitioner Family
DX: R30.9 Painful micturition, unspecified (principal)

== ENCOUNTER → 2020-06-19 | Outpatient (REF) | payer OTHER ==
[2020-06-19 12:25] LABS: APPEARANCE, URINE HAZY (CLEAR); BACTERIA, URINE AUTO NEGATIVE (NEGATIVE); BILIRUBIN, URINE AUTO NEGATIVE (NEGATIVE); BLOOD, URINE BLOOD NEGATIVE (NEGATIVE); CALCIUM OXALATE CRYSTALS LARGE; COLOR, URINE YELLOW (YELLOW); GLUCOSE, URINE (UA) AUTO NEGATIVE (NEGATIVE); KETONE, URINE AUTO NEGATIVE (NEGATIVE); LEUKOCYTE ESTERASE, URINE AUTO NEGATIVE (NEGATIVE); MUCUS, URINE SMALL (NEGATIVE); NITRITE, URINE AUTO NEGATIVE (NEGATIVE); PROTEIN, URINE AUTO NEGATIVE (NEGATIVE); RBC, URINE AUTO 8 /HPF (0-3); SPECIFIC GRAVITY URINE AUTO 1.027 (1.002-1.035); SQUAMOUS EPITHELIAL CELL UR AU 2 /HPF (0-6); UROBILINOGEN, URINE AUTO 0.2 mg/dL (0.0-2.0); WBC, URINE AUTO 2 /HPF (0-3)
[2020-06-19 12:30] LABS: BASO # 0.1 10^3/uL (0.0-0.2); BASO % 0.5 % (0.0-1.0); EOS # 0.1 10^3/uL (0.0-0.5); EOS % 0.9 % (0.0-3.0); HEMATOCRIT 46.1 % (36.0-47.0); HEMOGLOBIN 14.7 g/dl (12.0-15.5); LYMPH # 3.1 10^3/uL (1.5-5.0); LYMPH % 33.1 % (24.0-44.0); MEAN CORPUSCULAR HGB CONC 31.9 g/dl (32.0-36.5); MEAN CORPUSCULAR VOLUME 90.9 fl (80.0-96.0); MONO # 0.5 10^3/uL (0.0-0.8); MONO % 5.1 % (2.0-8.0); NEUTROPHILS # 5.6 10^3/uL (1.5-8.5); NEUTROPHILS % 59.8 % (36.0-66.0); PLATELET COUNT, AUTOMATED 289 10^3/uL (150-450); RED BLOOD COUNT 5.07 10^6/uL (4.00-5.40); WHITE BLOOD COUNT 9.4 10^3/uL (4.0-10.0)
[2020-06-19 12:59] LABS: ALBUMIN 3.6 GM/DL (3.2-5.2); ALT/SGPT 30 U/L (12-78); BILIRUBIN,TOTAL 0.4 MG/DL (0.2-1.0); BLOOD UREA NITROGEN 16 MG/DL (7-18); CALCIUM LEVEL 9.4 MG/DL (8.5-10.1); CARBON DIOXIDE LEVEL 29 MEQ/L (21-32); CHLORIDE LEVEL 105 MEQ/L (98-107); CHOLESTEROL LEVEL 137 MG/DL (<200); CHOLESTEROL RISK RATIO 3.044 (<5); CREATININE FOR GFR 0.78 MG/DL (0.55-1.30); FERRITIN 103 NG/ML (8-252); FOLATE 8.4 NG/ML; GLOMERULAR FILTRATION RATE > 60.0 (>60); GLUCOSE, FASTING 92 MG/DL (70-100); HDL CHOLESTEROL 45 MG/DL (>40); IRON (FE) 62 UG/DL (50-170); LDL CHOLESTEROL 75 MG/DL (<100); MAGNESIUM LEVEL 2.1 MG/DL (1.8-2.4); NON-HDL-C 92 MG/DL; PERCENT SATURATION 18.3 % (13.2-45.0); POTASSIUM SERUM 4.6 MEQ/L (3.5-5.1); SODIUM LEVEL 140 MEQ/L (136-145); TOTAL 25(OH) VITAMIN D 15.4 NG/ML (30.0-100.0); TOTAL IRON BINDING CAPACITY 338 UG/DL (250-450); TRIGLYCERIDES LEVEL 86 MG/DL (<150); VITAMIN B12 LEVEL 413 PG/ML
[2020-06-19 13:08] LABS: HEMOGLOBIN A1c 5.6 %
== END ==
LOC: M LAB REF 11:27
PROVIDERS: ATTEND Nurse Practitioner Family
DX: R30.9 Painful micturition, unspecified (principal); E66.9 Obesity, unspecified; F41.9 Anxiety disorder, unspecified; K21.9 Gastro-esophageal reflux disease without esophagitis

== ENCOUNTER 2022-03-28 22:43 | Emergency (ER) | payer OTHER ==
[~2022-03-28] VITALS: Ht 165.1 cm; Wt 141.4 kg
[2022-03-28 22:45] VITALS: BP 135/78
[2022-03-28] MEDS ORDERED: allergy med PO (22:56)
[2022-03-28] MEDS ORDERED: [UNRECOGNIZED DRUG - OTHER] PO (22:56)
[2022-03-28 23:50] LABS: RSV AMPLIFICATION NEGATIVE (NEGATIVE)
== END 2022-03-29 03:17 | disposition left against medical advice (07) ==
LOC: M ED 22:43
DX: Z53.21 Procedure and treatment not carried out due to patient leaving prior to being seen by health care provider (principal)

== ENCOUNTER → 2022-06-06 | Outpatient (REF) | payer OTHER ==
[~2022-06-06] MED LIST changes: +[UNRECOGNIZED DRUG - OTHER] PO; +allergy med PO
[2022-06-06 17:16] LABS: ALBUMIN 3.8 G/DL (3.2-5.2); ALKALINE PHOSPHATASE 137 U/L (46-116); ALT/SGPT 43 U/L (7.0-40); AST/SGOT 29 U/L (<34); BASO # 0.1 10^3/uL (0.0-0.2); BASO % 0.7 % (0.0-1.0); BILIRUBIN,TOTAL 0.4 MG/DL (0.3-1.2); BLOOD UREA NITROGEN 11 MG/DL (9-23); CALCIUM LEVEL 9.6 MG/DL (8.5-10.1); CARBON DIOXIDE LEVEL 28 MMOL/L (20-31); CHLORIDE LEVEL 104 MMOL/L (98-107); CHOLESTEROL LEVEL 153 MG/DL (<200); CHOLESTEROL RISK RATIO 3.06 (<5); CREATININE FOR GFR 0.89 MG/DL (0.55-1.30); EOS # 0.1 10^3/uL (0.0-0.5); EOS % 0.8 % (0.0-3.0); GLOMERULAR FILTRATION RATE > 60.0 (>60); GLUCOSE, FASTING 101 MG/DL (60-100); HDL CHOLESTEROL 49.9 MG/DL (>40); HEMATOCRIT 46.7 % (36.0-47.0); HEMOGLOBIN 14.2 g/dl (12.0-15.5); LDL CHOLESTEROL 80.5 MG/DL (<100); LYMPH # 3.4 10^3/uL (1.5-5.0); LYMPH % 33.9 % (24.0-44.0); MEAN CORPUSCULAR HEMOGLOBIN 27.7 pg (27.0-33.0); MEAN CORPUSCULAR HGB CONC 30.4 g/dl (32.0-36.5); MEAN CORPUSCULAR VOLUME 91.2 fl (80.0-96.0); MONO # 0.6 10^3/uL (0.0-0.8); MONO % 6.2 % (2.0-8.0); NEUTROPHILS # 5.9 10^3/uL (1.5-8.5); NEUTROPHILS % 57.8 % (36.0-66.0); NON-HDL-C 103 MG/DL; PLATELET COUNT, AUTOMATED 316 10^3/uL (150-450); POTASSIUM SERUM 4.6 MMOL/L (3.5-5.1); RED BLOOD COUNT 5.12 10^6/uL (4.00-5.40); SODIUM LEVEL 140 MMOL/L (136-145); THYROID STIMULATING HORMONE 7.298 uIU/ML (0.55-4.78); TOTAL PROTEIN 7.4 G/DL (5.7-8.2); TRIGLYCERIDES LEVEL 113 MG/DL (<150); WHITE BLOOD COUNT 10.1 10^3/uL (4.0-10.0)
[2022-06-06 17:18] LABS: FREE T4 1.09 NG/DL (0.89-1.76)
[2022-06-06 17:23] LABS: THYROID PEROXIDASE ANTIBODY > 1300.0 U/ML (<60.0)
[2022-06-06 17:42] LABS: HEMOGLOBIN A1c 5.4 % (4.0-6.0)
[2022-06-09 13:08] LABS: C-PEPTIDE 5.2 ng/mL (1.1-4.4); TSH RECEPTOR ASSAY <1.10 IU/L (0.00-1.75)
== END ==
LOC: M LAB REF 16:37
PROVIDERS: ATTEND Nurse Practitioner Family
DX: E66.01 Morbid (severe) obesity due to excess calories (principal); R94.6 Abnormal results of thyroid function studies

== ENCOUNTER → 2022-08-05 | Outpatient (REF) | payer OTHER | LOC: M LAB REF 16:08 | PROVIDERS: ATTEND Nurse Practitioner Family | DX: E06.3 Autoimmune thyroiditis (principal) ==

== ENCOUNTER → 2022-10-21 | Outpatient (REF) | payer OTHER | LOC: M LAB REF 16:36 | PROVIDERS: ATTEND Nurse Practitioner Family | DX: E06.3 Autoimmune thyroiditis (principal) ==

== ENCOUNTER → 2023-05-29 | Outpatient (REF) | payer OTHER ==
[~2023-05-29] MED LIST changes: -MEDR150I10; -MEDR150I10 IM; +MEDR150I13; +MEDR150I13 IM
== END ==
LOC: M LAB REF 16:32
PROVIDERS: ATTEND Nurse Practitioner Family
DX: E06.3 Autoimmune thyroiditis (principal)

== ENCOUNTER → 2023-07-17 | Outpatient (REF) | payer OTHER | LOC: M LAB REF 16:28 | PROVIDERS: ATTEND Nurse Practitioner Family | DX: E06.3 Autoimmune thyroiditis (principal) ==

== ENCOUNTER → 2023-08-10 | Outpatient (REF) | payer OTHER ==
[2023-08-10 18:29] LABS: HEMATOCRIT 43.6 % (36.0-47.0); HEMOGLOBIN 13.6 g/dl (12.0-15.5); MEAN CORPUSCULAR HEMOGLOBIN 28.8 pg (27.0-33.0); MEAN CORPUSCULAR HGB CONC 31.2 g/dl (32.0-36.5); MEAN CORPUSCULAR VOLUME 92.2 fl (80.0-96.0); PLATELET COUNT, AUTOMATED 314 10^3/uL (150-450); RED BLOOD COUNT 4.73 10^6/uL (4.00-5.40); WHITE BLOOD COUNT 9.1 10^3/uL (4.0-10.0)
[2023-08-10 18:37] LABS: TOTAL 25(OH) VITAMIN D 12.8 NG/ML (20.0-100.0)
[2023-08-10 18:42] LABS: ALBUMIN 3.4 G/DL (3.2-5.2); ALKALINE PHOSPHATASE 120 U/L (46-116); ALT/SGPT 27 U/L (7.0-40); AST/SGOT 13 U/L (<34); BILIRUBIN,TOTAL 0.4 MG/DL (0.3-1.2); BLOOD UREA NITROGEN 17 MG/DL (9-23); CARBON DIOXIDE LEVEL 27 MMOL/L (20-31); CHLORIDE LEVEL 107 MMOL/L (98-107); CHOLESTEROL LEVEL 117 MG/DL (<200); CHOLESTEROL RISK RATIO 2.73 (<5); CREATININE FOR GFR 0.85 MG/DL (0.55-1.30); GLOMERULAR FILTRATION RATE > 60.0 (>60); GLUCOSE, FASTING 101 MG/DL (60-100); HDL CHOLESTEROL 42.8 MG/DL (>40); NON-HDL-C 74.2 MG/DL; POTASSIUM SERUM 5.3 MMOL/L (3.5-5.1); SODIUM LEVEL 142 MMOL/L (136-145); TOTAL PROTEIN 6.3 G/DL (5.7-8.2); TRIGLYCERIDES LEVEL 101 MG/DL (<150)
[2023-08-10 18:54] LABS: HEMOGLOBIN A1c 5.4 % (4.0-6.0)
== END ==
LOC: M LAB REF 17:23
PROVIDERS: ATTEND Physician Assistant
DX: E66.01 Morbid (severe) obesity due to excess calories (principal); Z68.43 Body mass index [BMI] 50.0-59.9, adult; R73.01 Impaired fasting glucose; E55.9 Vitamin D deficiency, unspecified

== ENCOUNTER 2024-02-02 04:51 | Emergency (ER) | payer OTHER ==
[~2024-02-02] VITALS: Ht 165.1 cm; Wt 144.6 kg
[~2024-02-02 04:51] MED LIST changes: +ONDA-282 PO; -ONDA4TAB6 PO
[2024-02-02] MEDS ORDERED: LEVO75TA4 (04:57)
[2024-02-02] MEDS: ACETAMINOPHEN 325 MG TAB PO ONE (06:46)
[2024-02-02] MEDS: KETOROLAC 60MG 2ML VIAL IM ONE (06:46)
[2024-02-02] MEDS: methocarbamoL 750 MG TAB PO ONE (06:46)
[2024-02-02] MEDS ORDERED: DICL75TA PO (07:52)
[2024-02-02] MEDS ORDERED: METH-1165 PO (07:52)
[2024-02-02 08:27] VITALS: BP 115/64; TEMP 97.5; O2SAT 98
== END 2024-02-02 08:30 | disposition home or self-care (01) ==
LOC: M ED 04:51
DX: M54.32 Sciatica, left side (principal); M54.50 Low back pain, unspecified; K21.9 Gastro-esophageal reflux disease without esophagitis; Z88.5 Allergy status to narcotic agent; Z88.8 Allergy status to other drugs, medicaments and biological substances; Z91.041 Radiographic dye allergy status; Z91.018 Allergy to other foods; Z90.89 Acquired absence of other organs; Z79.899 Other long term (current) drug therapy
CPT/HCPCS: 96372; 99284; J1885

== ENCOUNTER → 2024-02-26 | Outpatient (CLI) | payer OTHER ==
[~2024-02-26] MED LIST changes: +DICL75TA PO; +LEVO75TA4; +METH-1165 PO
[2024-02-26 18:22] LABS: THYROID STIMULATING HORMONE 2.205 uIU/ML (0.55-4.78)
[2024-02-26 18:23] LABS: FREE T4 1.37 NG/DL (0.89-1.76)
[2024-02-26 18:52] LABS: HIV 1&2 SCREEN NEGATIVE (NEGATIVE)
== END ==
LOC: M WUC 14:39
PROVIDERS: ATTEND Physician Assistant
DX: M54.42 Lumbago with sciatica, left side (principal); Z11.4 Encounter for screening for human immunodeficiency virus [HIV]; E06.3 Autoimmune thyroiditis

== ENCOUNTER → 2024-03-21 | Outpatient (REF) | payer OTHER ==
[2024-03-21 19:37] LABS: HEMOGLOBIN A1c 5.5 % (4.0-6.0)
[2024-03-21 19:55] LABS: BLOOD UREA NITROGEN 18 MG/DL (9-23); CALCIUM LEVEL 9.6 MG/DL (8.5-10.1); CARBON DIOXIDE LEVEL 28 MMOL/L (20-31); CHLORIDE LEVEL 103 MMOL/L (98-107); CREATININE FOR GFR 0.86 MG/DL (0.55-1.30); GLOMERULAR FILTRATION RATE > 60.0 (>60); GLUCOSE, FASTING 101 MG/DL (60-100); POTASSIUM SERUM 4.8 MMOL/L (3.5-5.1); SODIUM LEVEL 139 MMOL/L (136-145)
[2024-03-21 19:56] LABS: TOTAL 25(OH) VITAMIN D 22.8 NG/ML (20.0-100.0)
== END ==
LOC: M LAB REF 16:31
PROVIDERS: ATTEND Physician Assistant
DX: R73.01 Impaired fasting glucose (principal); E55.9 Vitamin D deficiency, unspecified

== ENCOUNTER 2024-03-25 12:05 | Outpatient (RCR) | payer OTHER | END 2024-03-30 | LOC: M PT 12:05 | PROVIDERS: ATTEND Physician Assistant | DX: M54.42 Lumbago with sciatica, left side (principal) ==

== ENCOUNTER 2024-04-22 12:15 | Outpatient (RCR) | payer OTHER | END 2024-04-30 | LOC: M PT 12:15 | PROVIDERS: ATTEND Physician Assistant | DX: M54.42 Lumbago with sciatica, left side (principal) ==

== ENCOUNTER → 2024-07-17 | Outpatient (REF) | payer OTHER ==
[2024-07-17 13:09] LABS: HEMATOCRIT 43.6 % (36.0-47.0); HEMOGLOBIN 13.5 g/dl (12.0-15.5); MEAN CORPUSCULAR HEMOGLOBIN 27.2 pg (27.0-33.0); MEAN CORPUSCULAR VOLUME 87.9 fl (80.0-96.0); PLATELET COUNT, AUTOMATED 343 10^3/uL (150-450); RED BLOOD COUNT 4.96 10^6/uL (4.00-5.40); WHITE BLOOD COUNT 11.5 10^3/uL (4.0-10.0)
[2024-07-17 13:24] LABS: ALBUMIN 3.3 G/DL (3.2-5.2); ALKALINE PHOSPHATASE 126 U/L (35-104); ALT/SGPT 23 U/L (7.0-40); AST/SGOT 16 U/L (<34); BILIRUBIN,TOTAL 0.5 MG/DL (0.3-1.2); BLOOD UREA NITROGEN 18 MG/DL (9-23); CARBON DIOXIDE LEVEL 29 MMOL/L (20-31); CHLORIDE LEVEL 104 MMOL/L (98-107); CHOLESTEROL LEVEL 125 MG/DL (<200); CHOLESTEROL RISK RATIO 2.81 (<5); CREATININE FOR GFR 0.81 MG/DL (0.55-1.30); GLOMERULAR FILTRATION RATE > 60.0 (>60); GLUCOSE, FASTING 117 MG/DL (60-100); HDL CHOLESTEROL 44.4 MG/DL (>40); LDL CHOLESTEROL 55.6 MG/DL (<100); NON-HDL-C 80.6 MG/DL; POTASSIUM SERUM 4.8 MMOL/L (3.5-5.1); SODIUM LEVEL 141 MMOL/L (136-145); THYROID STIMULATING HORMONE 3.191 uIU/ML (0.55-4.78); TOTAL PROTEIN 6.7 G/DL (5.7-8.2); TRIGLYCERIDES LEVEL 125 MG/DL (<150)
[2024-07-17 13:30] LABS: HEMOGLOBIN A1c 5.7 % (4.0-6.0)
== END ==
LOC: M LAB REF 12:08
PROVIDERS: ATTEND Physician Assistant
DX: R73.01 Impaired fasting glucose (principal); E66.01 Morbid (severe) obesity due to excess calories; Z68.43 Body mass index [BMI] 50.0-59.9, adult; R53.82 Chronic fatigue, unspecified; E06.3 Autoimmune thyroiditis